=== PATIENT | male | born 1985 | race Two or more races ===

== ENCOUNTER 2024-01-14 00:09 | Emergency (ER) | payer BC, SELFPAY ==
[2024-01-14 00:14] VITALS: BP 142/88
--- NOTE | 2024-01-14 00:30 | ED.GENMED ---
History of Present Illness
General
Chief Complaint: Flank Pain
Source: patient
Exam Limitations: none
Time Seen by Provider: 01/14/24 00:25
Travel History
Have you had any contact with someone who has COVID-19?: No
Do you have any symptoms of coronavirus? Fever > 100 degrees, chills, cough, shortness of breath, sore throat, loss of taste or smell, muscle aches, or headache?: No
History of Present Illness
History of Present Illness:
Patient from [place]. Here for work. Sudden onset of right flank pain a few hours ago. No shortness of breath or pleuritic pain. No nausea or vomiting. No urinary symptoms. No preceding pain management. History of kidney stones and of always
passed on their own. Last episode was a few years ago.
Past History
Past History
ED Past Medical History: Other (Kidney stones/psoriatic arthritis)
ED Past Surgical History: Other (Oral surgery)
Review of Systems
Review of Systems
All Other Systems: Not applicable
Constitutional: Denies fever or chills
: Denies dysuria or urgency
Phy Exam
Physical Exam
Physical Exam:
GENERAL: Alert and oriented in no apparent distress. Standing in the room getting changed no distress
EYE: Orbits normal.
NECK: Supple
CARDIAC: Regular rate and rhythm without any obvious murmurs.
LUNGS: Clear breath sounds,normal
ABDOMEN: Soft, without focal tenderness or distention. No CVA tenderness
NEUROLOGICAL: Alert and oriented , grossly non-focal
SKIN: Warm and dry
MUSCULOSKELETAL: No edema,no deformity.Good color
PSYCH: Normal and appropriate interaction.
Course
Orders/Labs/Results
Orders:
Orders
01/14/24 00:29
CT Abd/pel Without Iv Or Oral Urgent
Comment:
Reason For Exam: Sudden right flank pain
IV Insert/Care/Rem.- Treatment PRN
0.9% Sodium Chloride 500 ml [Nss] 500 ml IV BOLUS
Ketorolac [Toradol] 15 mg IV NOW STA
01/14/24 00:48
Complete Blood Count/With Diff Urgent
Comprehensive Metabolic Panel Urgent
Lipase Urgent
01/14/24 01:57
Urinalysis Reflex To Culture Urgent
Date Specimen was Collected: 01/14/24
Time Specimen was Collected: 01:56
Urine Microscopic Reflex Cult Urgent
Abnormal Lab Results
01/14/24 01/14/24
00:48 01:57
WBC 11.7 H 10^3/uL
(4.8-10.8)
Absolute Neuts (auto) 7.4 H 10^3/uL
(1.4-6.5)
Absolute Monos (auto) 0.9 H 10^3/uL
(0.1-0.6)
ALT 56 H U/L
(0-50)
Urine Ketones Trace A
(Negative)
Ur Occult Blood Reflex 4+ A
(Negative)
Urine RBC 16-20 A /HPF
(0-2)
Urine Bacteria (Reflex) Few A
(Negative)
01/14/24 00:48
01/14/24 00:48
Vital Signs
Initial and Last Documented VS:
Initial Vital Signs
Temp Pulse Resp BP Pulse Ox
98.7 F 89 16 142/88 97
01/14/24 00:14 01/14/24 00:14 01/14/24 00:14 01/14/24 00:14 01/14/24 00:14
Last Documented Vital Signs
Temp Pulse Resp BP Pulse Ox
98.7 F 89 16 142/88 97
01/14/24 00:14 01/14/24 00:14 01/14/24 00:14 01/14/24 00:14 01/14/24 00:14
*Radiology
Radiology exam reviewed: radiology read reviewed (2 mm stone at the right UVJ with mild hydronephrosis)
*Pulse Oximetry
Patient hypoxic: no
*Critical Care Note
Total Time (30-74mins, 75-104mins- exclusive of procedures): Not Applicable
Update Note
Update Note:
Patient feels well. Stone is right at the bladder. No infectious symptoms. Symptomatic treatment and follow-up
ED Attending Note
-
Portions of this chart may have been created with voice recognition software.� Occasional wrong word or��sound alike� substitutions may have occurred due to the inherent limitations of voice recognition software.
Discharge Plan
Departure
Patient Disposition: Home (Routine Discharge)
Date of Disposition: 01/14/24
Time of Disposition: 02:18
Patient with high blood pressure during this ER visit?: Yes
Discharge Problem:
2 mm right kidney stone
Instructions: Kidney Stones (DC), Flank Pain (DC), BLOOD PRESSURE
Referrals:
UNKNOWN - PT DOES,NOT KNOW [Family Provider] -
Activity Restrictions/Additional Instructions:
Advil or Motrin for pain
It is very likely this kidney stone should pass. However if you do not have resolution in pain in the next 3 to 5 days or you develop any infectious symptoms, return immediately for reevaluation
Follow-up with your primary physician when you return to [place]
Interventions
Interventions:
*Risk Screen - Suicide Last Done: 01/14/24 00:14
*General Assessment Last Done: 01/14/24 00:14
*Neglect/Abuse Screening Last Done: 01/14/24 00:14
ED- Fall Risk Assessment Last Done: 01/14/24 00:14
*ED COVID-19 Vaccine History Last Done: 01/14/24 00:14
IV-Iltdeg-Nqcfbmwvzl Assessment Last Done: 01/14/24 01:20
ED-Male Genitourinary Assessment Last Done: 01/14/24 01:20
Discharge Date and Time
Print Language: KOREAN
[2024-01-14] MEDS: NSS 500 IV (00:45)
[2024-01-14] MEDS: TORADOL 15 MG IV (00:45)
[2024-01-14 00:55] LABS: % Basophils 0.3 % (0-2); % Eosinophils 1.5 % (0-6); % Immature Granulocytes 0.3 % (0-0.5); % Lymphocytes 27.1 % (20.5-51.1); % Monocytes 7.3 % (1.7-9.3); % Neutrophils 63.5 % (42.2-75.2); Absolute Eosinophils 0.2 10^3/uL (0-0.7); Absolute Lymphocytes 3.2 10^3/uL (1.2-3.4); Absolute Monocytes 0.9 10^3/uL (0.1-0.6); Absolute Neutrophils 7.4 10^3/uL (1.4-6.5); Hematocrit 42.1 % (39.0-52.0); Hemoglobin 14.1 g/dL (13.0-18.0); Mean Corp Hgb Conc. 33.5 g/dL (33.0-37.0); Mean Corpuscular Hgb 28.4 pg (27.0-31.0); Mean Corpuscular Volume 84.9 fL (80.0-94.0); Mean Platelet Volume 9.7 fL (7.4-10.4); Nucleated Red Blood Cells % 0 % (-); Platelet Count 340 10^3/uL (130-400); Red Blood Cell Count 4.96 10^6/uL (4.70-6.10); Red Cell Dist. Width 12.3 % (11.5-14.5); White Blood Cell Count 11.7 10^3/uL (4.8-10.8)
[2024-01-14 01:09] LABS: ALT (SGPT) 56 U/L (0-50); AST (SGOT) 38 U/L (17-59); Albumin 4.7 g/dl (3.5-5.0); Alkaline Phosphatase 81 U/L (38-126); Blood Urea Nitrogen 16 mg/dl (9-20); Calcium 9.5 mg/dl (8.4-10.2); Carbon Dioxide 25 mmol/L (22-30); Chloride 101 mmol/L (98-107); Glucose 98 mg/dl (70-99); Lipase 34 U/L (23-300); Potassium 4.1 mmol/L (3.5-5.1); Sodium 139 mmol/L (135-145); Total Bilirubin 0.5 mg/dl (0.2-1.3); Total Protein 7.9 g/dl (6.3-8.2); eGFR > 60.00
[2024-01-14 02:05] LABS: Urine Albumin Negative (Neg - Trace); Urine Bilirubin Negative (Negative); Urine Character Clear (Clear); Urine Color Yellow; Urine Glucose Negative (Negative); Urine Ketone Trace (Negative); Urine Leukocyte Negative (Negative); Urine Nitrite Negative (Negative); Urine Occult Blood 4+ (Negative); Urine Urobilinogen Negative (Neg - 1+)
[2024-01-14 02:15] LABS: Urine Bacteria Few (Negative); Urine Red Blood Cell 16-20 /HPF (0-2); Urine Squamous Cell 0-2 /LPF (Few); Urine White Cell 0-2 /HPF (0-5)
[2024-01-14 02:40] VITALS: BP 134/79
== END 2024-01-14 02:51 | disposition home or self-care (01) ==
LOC: EMR 00:09
PROVIDERS: EMERGENCY PHYSICIAN Emergency Medicine
DX: N13.2 Hydronephrosis with renal and ureteral calculous obstruction (principal); Z87.442 Personal history of urinary calculi
CPT/HCPCS: 99284; 96374; 96361 ×2; 74176; 80053; 81003; 81015; 83690; 85025